=== PATIENT | female | born 1980 | race American Indian/Alaskan Native ===

== ENCOUNTER 2016-11-21 18:27 | Outpatient (CLI) | payer MEDICAID | END 2016-11-21 18:50 | disposition home or self-care (01) | LOC: TRG 18:27 → EDSTATUS 18:28 → TRG 18:32 | PROVIDERS: ATTEND Obstetrics & Gynecology | DX: O47.9 False labor, unspecified (principal); Z3A.00 Weeks of gestation of pregnancy not specified | CPT/HCPCS: 86850; 86900; 86901; 96372; J2790 ==

== ENCOUNTER 2016-11-26 15:42 | Outpatient (CLI) | payer MEDICAID ==
[2016-11-26 16:03] VITALS: BP 103/54
== END 2016-11-26 16:45 | disposition home or self-care (01) ==
LOC: TRG 15:42
PROVIDERS: ATTEND Obstetrics & Gynecology
DX: O77.9 Labor and delivery complicated by fetal stress, unspecified (principal); O47.9 False labor, unspecified; Z3A.00 Weeks of gestation of pregnancy not specified
CPT/HCPCS: 59025

== ENCOUNTER 2017-08-21 21:02 | Emergency (ER) | payer MEDICAID ==
[2017-08-21 21:28] VITALS: BP 131/81
[2017-08-21 22:29] LABS: Basophils % (Auto) 0.3 % (0.0-1.8); Hematocrit 39.8 % (30.3-42.9); Hemoglobin 13.4 gm/dl (10.1-14.3); Mean Corpuscular HGB Conc 34 % (30-34); Mean Corpuscular Hemoglobin 27 pg (28-32); Mean Corpuscular Volume 81 fl (79-97); Platelet Count 283 K/mm3 (140-440); Red Blood Count 4.89 M/mm3 (3.65-5.03); Red Cell Distribution Width 15.2 % (13.2-15.2); White Blood Count 6.3 K/mm3 (4.5-11.0)
[2017-08-21 22:35] LABS: Bacteria,Urine 1+ /HPF (Negative); Bilirubin,Urine NEG (Negative); Blood,Urine NEG (Negative); Ketones,Urine NEG (Negative); Leukocyte Esterase,Urine LG (Negative); Mucus,Urine FEW /HPF; Nitrite,Urine NEG (Negative)
[2017-08-21 22:45] LABS: Alanine Aminotransferase 11 units/L (7-56); Albumin 4.4 g/dL (3.9-5); Albumin/Globulin Ratio 1.1 %; Alkaline Phosphatase 61 units/L (35-129); BUN/Creatinine Ratio 7; Blood Urea Nitrogen 5 mg/dL (7-17); Calcium 9.7 mg/dL (8.4-10.2); Carbon Dioxide 22 mmol/L (22-30); Glucose 107 mg/dL (65-100); Lipase 17 units/L (13-60); Total Protein 8.3 g/dL (6.3-8.2)
[2017-08-21 22:46] LABS: Anion Gap 21 mmol/L; Chloride 94.9 mmol/L (98-107); Potassium 3.6 mmol/L (3.6-5.0); Sodium 134 mmol/L (137-145)
== END 2017-08-21 22:07 | disposition left against medical advice (07) ==
LOC: ED 21:02
DX: R11.10 Vomiting, unspecified (principal); Z53.21 Procedure and treatment not carried out due to patient leaving prior to being seen by health care provider
CPT/HCPCS: 36415; 80048; 80053; 81001; 83690; 84702; 85025

== ENCOUNTER 2018-02-13 12:02 | Outpatient (CLI) | payer MEDICAID | END 2018-02-13 14:30 | disposition home or self-care (01) | LOC: TRG 12:02 → LAB 12:02 → TRG 14:09 | PROVIDERS: ATTEND Obstetrics & Gynecology | DX: O36.0130 Maternal care for anti-D [Rh] antibodies, third trimester, not applicable or unspecified (principal); O09.523 Supervision of elderly multigravida, third trimester; Z3A.33 33 weeks gestation of pregnancy | CPT/HCPCS: 86850; 86900; 86901; J2790; 96372 ==

== ENCOUNTER 2018-03-02 18:28 | Emergency (ER) | payer OTHER, MEDICAID ==
[2018-03-02 18:38] VITALS: BP 109/53
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
== END 2018-03-02 20:35 | disposition home or self-care (01) ==
LOC: ED 18:28
DX: O26.893 Other specified pregnancy related conditions, third trimester (principal); S39.012A Strain of muscle, fascia and tendon of lower back, initial encounter; G44.209 Tension-type headache, unspecified, not intractable; Z3A.38 38 weeks gestation of pregnancy; Z88.8 Allergy status to other drugs, medicaments and biological substances; V49.59XA Passenger injured in collision with other motor vehicles in traffic accident, initial encounter; Y93.89 Activity, other specified; Y92.89 Other specified places as the place of occurrence of the external cause; Y99.8 Other external cause status
CPT/HCPCS: 99282

== ENCOUNTER 2018-03-02 20:50 | Observation (INO) | payer OTHER, MEDICAID ==
[2018-03-02] MEDS ORDERED: LACTATED RINGERS 1,000 ML IV ONE (21:35)
[2018-03-02 22:46] LABS: Hemoglobin 8.6 gm/dl (10.1-14.3); Mean Corpuscular Volume 73 fl (79-97)
[2018-03-02 22:47] LABS: Mean Corpuscular HGB Conc 32 % (30-34); Platelet Count 286 K/mm3 (140-440); Red Cell Distribution Width 17.6 % (13.2-15.2)
[2018-03-02 22:48] LABS: Mean Corpuscular Hemoglobin 23 pg (28-32)
[2018-03-02 22:49] LABS: Bilirubin,Urine NEG (Negative); Blood,Urine NEG (Negative); Color,Urine Yellow (Yellow); Protein,Urine <15 mg/dL mg/dL (Negative); Urobilinogen,Urine < 2.0 mg/dL (<2.0)
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
[2018-03-02] MEDS: LACTATED RINGERS 1,000 ML IV SCH (23:28)
[2018-03-03] MEDS ORDERED: AMBIEN PO PRN (00:17)
[2018-03-03] MEDS: PERCOCET 5/325 PO PRN ×2 (00:30→08:47)
[2018-03-03] MEDS ORDERED: FLEXERIL PO PRN (00:44)
[2018-03-03] MEDS ORDERED: FLEXERIL PO SCH (01:00)
[2018-03-03] MEDS: LACTATED RINGERS 1,000 ML IV SCH (08:39)
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
[2018-03-03 17:00] VITALS: BP 92/56
== END 2018-03-03 17:30 | disposition home or self-care (01) ==
LOC: TRG 20:50 → LD 23:02
PROVIDERS: ADMIT Obstetrics & Gynecology; ATTEND Obstetrics & Gynecology
DX: Z34.93 Encounter for supervision of normal pregnancy, unspecified, third trimester (principal); Z04.1 Encounter for examination and observation following transport accident; Z3A.36 36 weeks gestation of pregnancy
CPT/HCPCS: 36415; 76816; 76819; 81001; 85027; 86850; 86870; 86900; 86901; 96360; 96361; G0378; J7120

== ENCOUNTER 2018-07-28 17:12 | Emergency (ER) | payer SELFPAY ==
[2018-07-28] MEDS ORDERED: MOTRIN PO ONE (18:27)
--- NOTE | 2018-07-28 19:20 | XRay Report ---
FINAL REPORT EXAM: XR HAND 3+V RT HISTORY: middle finger injury COMPARISON: None available. FINDINGS: Three views the right hand obtained. There is an oblique nondisplaced fracture at the volar base of the 3rd middle phalanx. Remaining bony structures are intact. Joint spaces are preserved.. IMPRESSION: Oblique nondisplaced fracture through the volar base of the 3rd middle phalanx.
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
[2018-07-28 20:13] VITALS: BP 132/88
== END 2018-07-28 20:16 | disposition home or self-care (01) ==
LOC: ED 17:12
DX: S62.652A Nondisplaced fracture of middle phalanx of right middle finger, initial encounter for closed fracture (principal); D57.3 Sickle-cell trait; Z88.1 Allergy status to other antibiotic agents; W22.01XA Walked into wall, initial encounter; Y93.89 Activity, other specified; Y99.8 Other external cause status; Y92.018 Other place in single-family (private) house as the place of occurrence of the external cause

== ENCOUNTER 2019-02-28 02:53 | Emergency (ER) | payer OTHER ==
[2019-02-28 06:38] VITALS: BP 98/64
[2019-02-28] MEDS ORDERED: TORADOL IM ONE (06:49)
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
== END 2019-02-28 07:30 | disposition home or self-care (01) ==
LOC: ED 02:53
DX: S39.012A Strain of muscle, fascia and tendon of lower back, initial encounter (principal); D57.3 Sickle-cell trait; Z87.891 Personal history of nicotine dependence; Z88.1 Allergy status to other antibiotic agents; Y04.0XXA Assault by unarmed brawl or fight, initial encounter; Y93.89 Activity, other specified; Y92.89 Other specified places as the place of occurrence of the external cause; Y99.8 Other external cause status
CPT/HCPCS: 96372; 99282; J1885

== ENCOUNTER 2019-03-06 04:13 | Emergency (ER) | payer OTHER ==
[2019-03-06 06:20] VITALS: BP 117/78
[2019-03-06] MEDS ORDERED: TORADOL IM ONE (07:01)
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
== END 2019-03-06 08:31 | disposition home or self-care (01) ==
LOC: ED 04:13
DX: S16.1XXA Strain of muscle, fascia and tendon at neck level, initial encounter (principal); S60.222A Contusion of left hand, initial encounter; S60.221A Contusion of right hand, initial encounter; Y04.8XXA Assault by other bodily force, initial encounter; Y93.89 Activity, other specified; Y92.89 Other specified places as the place of occurrence of the external cause; Y99.8 Other external cause status; Z87.891 Personal history of nicotine dependence; Z88.1 Allergy status to other antibiotic agents
CPT/HCPCS: 72040; 73060; 96372; 99283; J1885

== ENCOUNTER 2020-02-11 10:10 | Emergency (ER) | payer SELFPAY ==
[2020-02-11 10:22] VITALS: BP 131/89
[2020-02-11 10:55] LABS: Bilirubin,Urine NEG (Negative); Blood,Urine LG (Negative); Color,Urine Red (Yellow); Urobilinogen,Urine < 2.0 mg/dL (<2.0)
[2020-02-11 10:57] LABS: RBC,Urine > 182.0 /HPF (0.0-6.0); WBC,Urine < 1.0 /HPF (0.0-6.0)
[2020-02-11 10:59] LABS: HCG Qualitative,Urine Negative (Negative)
--- NOTE | 2020-02-11 11:38 | Emergency Department Report ---
ED Dysuria HPI - HPI Chief Complaint: Urogenital-Female Stated Complaint: BLOOD IN URINE Time Seen by Provider: 02/11/20 11:00 Severity: Mild (1 week) Symptoms: Dysuria: No (Patient states she had dysuria about 2 to 3 weeks ago but now resolved), Frequency: Yes, Suprapubic Pain: No, Flank Pain: No, Fever: No, Hematuria: Yes, Abdominal Pain: No, Previous UTI's: No Other History: This is a 39-year-old female presents the ED complaining of blood in the urine for the past week. Patient states about a month ago she started experiencing some pain with urination. Patient states she thought it was a UTI so she let it resolved. Patient states the pain went away but the past week she started noticing from some frequency and noticing blood in her urine. Patient denies abdominal pain, pelvic pain, nausea vomiting or diarrhea ED Review of Systems ROS: Stated complaint: BLOOD IN URINE Other details as noted in HPI Comment: All other systems reviewed and negative ED Past Medical Hx - Past Medical History Previous Medical History?: Yes Hx Hypertension: No Hx Congestive Heart Failure: No Hx Diabetes: No Hx Deep Vein Thrombosis: No Hx Renal Disease: No Hx Sickle Cell Disease: No Hx Seizures: No Hx Asthma: No Hx COPD: No Hx HIV: No Additional medical history: sickle cell trait - Surgical History Past Surgical History?: No Additional Surgical History: galgion cyst hand and breast - Social History Smoking Status: Current Every Day Smoker Substance Use Type: Alcohol, Marijuana - Medications Home Medications: Home Medications Medication Instructions Recorded Confirmed Last Taken Type Cyclobenzaprine HCl [Flexeril 5 MG 5 mg PO TID PRN #15 tab 03/02/18 03/02/18 Unknown Rx TAB] oxyCODONE /ACETAMINOPHEN [Percocet 1 tab PO Q6HR PRN #30 tablet 03/03/18 Unknown Rx 5/325] Acetaminophen/Codeine [Tylenol 1 tab PO Q6H PRN #12 tab 07/28/18 Unknown Rx /Codeine # 3 tab] Ibuprofen [Motrin] 600 mg PO Q8H PRN #30 tablet 07/28/18 Unknown Rx Cyclobenzaprine [Flexeril] 10 mg PO TID PRN #30 tablet 02/28/19 Unknown Rx Menthol/Camphor [[place] 1 applicatio TP QID PRN #1 tube 02/28/19 Unknown Rx Ointment] Naproxen 500 mg PO BID PRN #30 tablet 02/28/19 Unknown Rx Naproxen [Naprosyn] 500 mg PO BID #10 tablet 03/06/19 Unknown Rx traMADoL [Ultram] 50 mg PO Q6HR PRN #7 tablet 03/06/19 Unknown Rx Ciprofloxacin HCl [Ciprofloxacin 500 mg PO Q12HR #14 tab 02/11/20 Unknown Rx TAB] Dysuria Exam - Exam General: Vital signs noted. No distress. Alert and acting appropriately. Exam: Yes Moist Mucous Membranes, No CVA Tenderness, No Abdominal Tenderness, No Rigidity or Guarding Labs: Lab Results 02/11/20 Range/Units Unknown Urine Color Red (Yellow) Urine Turbidity Slightly-cloudy (Clear) Urine pH 6.0 (5.0-7.0) Ur Specific [place] 1.009 (1.003-1.030) Urine Protein 100 mg/dl (Negative) mg/dL Urine Glucose (UA) Neg (Negative) mg/dL Urine Ketones Neg (Negative) mg/dL Urine Blood Lg (Negative) Urine Nitrite Neg (Negative) Urine Bilirubin Neg (Negative) Urine Urobilinogen < 2.0 (<2.0) mg/dL Ur Leukocyte Esterase Neg (Negative) Urine WBC (Auto) < 1.0 (0.0-6.0) /HPF Urine RBC (Auto) > 182.0 (0.0-6.0) /HPF Urine HCG, Qual Negative (Negative) ED Course Vital Signs 02/11/20 10:21 Temperature 98.1 F Pulse Rate 63 Respiratory 18 Rate Blood Pressure 131/89 O2 Sat by Pulse 100 Oximetry ED Medical Decision Making - Lab Data Laboratory Last Values Urine Color Red (Yellow) 02/11/20 Unknown Urine Turbidity Slightly-cloudy (Clear) 02/11/20 Unknown Urine pH 6.0 (5.0-7.0) 02/11/20 Unknown Ur Specific [place] 1.009 (1.003-1.030) 02/11/20 Unknown Urine Protein 100 mg/dl mg/dL (Negative) 02/11/20 Unknown Urine Glucose (UA) Neg mg/dL (Negative) 02/11/20 Unknown Urine Ketones Neg mg/dL (Negative) 02/11/20 Unknown Urine Blood Lg (Negative) 02/11/20 Unknown Urine Nitrite Neg (Negative) 02/11/20 Unknown Urine Bilirubin Neg (Negative) 02/11/20 Unknown Urine Urobilinogen < 2.0 mg/dL (<2.0) 02/11/20 Unknown Ur Leukocyte Esterase Neg (Negative) 02/11/20 Unknown Urine WBC (Auto) < 1.0 /HPF (0.0-6.0) 02/11/20 Unknown Urine RBC (Auto) > 182.0 /HPF (0.0-6.0) 02/11/20 Unknown Urine HCG, Qual Negative (Negative) 02/11/20 Unknown - Medical Decision Making 39-year-old female presents with hematuria This is most likely secondary to a UTI. Discussed with patient we will treat with antibiotics and if symptoms do not resolve patient is to follow-up with a urologist/cone runner for further work- up. Vital signs are normal patient understands instructions she is in no acute dis tress. Critical care attestation.: If time is entered above; I have spent that time in minutes in the direct care of this critically ill patient, excluding procedure time. ED Disposition Clinical Impression: Hematuria Disposition: - TO HOME OR SELFCARE Is pt being admited?: No Does the pt Need Aspirin: No Condition: Stable Instructions: Urinary Tract Infection in Women (ED), Acute Hematuria (ED) Additional Instructions: Make sure to follow up with the primary care physician as discussed. Take all your medications as you've been prescribed. If you have any worsening symptoms or develop new symptoms please return to ED immediately. Prescriptions: Ciprofloxacin HCl [Ciprofloxacin TAB] 500 mg PO Q12HR #14 tab Referrals: SANIYA ANAYA MD [Primary Care Provider] - 3-5 Days [facility] [Provider Group] - 3-5 Days [facility] [Provider Group] - 3-5 Days JANE LEAHY MD [Staff Physician] - 3-5 Days Forms: Accompanied Note, Work/School Release Form(ED) Time of Disposition: 11:40
== END 2020-02-11 12:00 | disposition home or self-care (01) ==
LOC: ED 10:10
DX: R31.9 Hematuria, unspecified (principal); F17.200 Nicotine dependence, unspecified, uncomplicated; F12.90 Cannabis use, unspecified, uncomplicated; Z98.890 Other specified postprocedural states; Z79.899 Other long term (current) drug therapy; Z88.8 Allergy status to other drugs, medicaments and biological substances
CPT/HCPCS: 81001; 81025; 99283

== ENCOUNTER 2022-06-27 10:37 | Emergency (ER) | payer SELFPAY ==
[2022-06-27 11:30] VITALS: BP 132/70
--- NOTE | 2022-06-27 14:44 | Emergency Department Report ---
ED Female HPI - General Chief complaint: Abdominal Pain Stated complaint: 2 MONTH PREG/STOMACH PAIN/VOMITTING Source: patient Mode of arrival: Ambulatory Limitations: No Limitations - History of Present Illness Initial comments: 41 YO COMES TO ER WITH ABD PAIN. STATES SHE IS PREG AND HAVING BLEEDING. SHE THINKS THIS IS THE 7TH BECAUSE SHE HAS SIX KIDS HAS NOT SEEN HER OBGYN SHE WILL NOT GET OFF THE PHONE FOR HPI; VERY RUDE AND HOSTILE DURING INTERVIEW WHEN TOLD WE WOULD NEED BLOOD AND URINE SHE ASKED WHY WE WOULD NEED THAT IF SHE IS . I EXPLAINED. SHE CAN NOT TELL ME THE DATE OF HER LMP Worsens with: none Are you Now?: Yes Associated Symptoms: denies other symptoms, vaginal discharge, vaginal bleeding, abdominal pain, nausea/vomiting, dysuria. denies: fever/chills, headaches, loss of appetite, hematuria, rash, seizure, shortness of breath, syncope, weakness - Related Data Sexually active: Yes Previous Rx's Medication Instructions Recorded Last Taken Type Cyclobenzaprine HCl [Flexeril 5 MG 5 mg PO TID PRN #15 tab 03/02/18 Unknown Rx TAB] oxyCODONE /ACETAMINOPHEN [Percocet 1 tab PO Q6HR PRN #30 tablet 03/03/18 Unknown Rx 5/325] Acetaminophen/Codeine [Tylenol 1 tab PO Q6H PRN #12 tab 07/28/18 Unknown Rx /Codeine # 3 tab] Ibuprofen [Motrin] 600 mg PO Q8H PRN #30 tablet 07/28/18 Unknown Rx Cyclobenzaprine [Flexeril] 10 mg PO TID PRN #30 tablet 02/28/19 Unknown Rx Menthol/Camphor [[place] 1 applicatio TP QID PRN #1 tube 02/28/19 Unknown Rx Ointment] Naproxen 500 mg PO BID PRN #30 tablet 02/28/19 Unknown Rx Naproxen [Naprosyn] 500 mg PO BID #10 tablet 03/06/19 Unknown Rx traMADoL [Ultram] 50 mg PO Q6HR PRN #7 tablet 03/06/19 Unknown Rx Ciprofloxacin HCl [Ciprofloxacin 500 mg PO Q12HR #14 tab 02/11/20 Unknown Rx TAB] Allergies Allergy/AdvReac Type Severity Reaction Status Date / Time vancomycin Allergy Itching Verified 12/03/16 20:42 ED Review of Systems ROS: Stated complaint: 2 MONTH PREG/STOMACH PAIN/VOMITTING Other details as noted in HPI Comment: All other systems reviewed and negative ED Past Medical Hx - Past Medical History Previous Medical History?: Yes Hx Hypertension: No Hx Congestive Heart Failure: No Hx Diabetes: No Hx Deep Vein Thrombosis: No Hx Renal Disease: No Hx Sickle Cell Disease: No Hx Seizures: No Hx Asthma: No Hx COPD: No Hx HIV: No Additional medical history: sickle cell trait - Surgical History Past Surgical History?: Yes Additional Surgical History: galgion cyst hand and breast - Family History Family history: no significant - Social History Smoking Status: Never Smoker Substance Use Type: None - Medications Home Medications: Home Medications Medication Instructions Recorded Confirmed Last Taken Type Cyclobenzaprine HCl [Flexeril 5 MG 5 mg PO TID PRN #15 tab 03/02/18 03/02/18 Unknown Rx TAB] oxyCODONE /ACETAMINOPHEN [Percocet 1 tab PO Q6HR PRN #30 tablet 03/03/18 Unknown Rx 5/325] Acetaminophen/Codeine [Tylenol 1 tab PO Q6H PRN #12 tab 07/28/18 Unknown Rx /Codeine # 3 tab] Ibuprofen [Motrin] 600 mg PO Q8H PRN #30 tablet 07/28/18 Unknown Rx Cyclobenzaprine [Flexeril] 10 mg PO TID PRN #30 tablet 02/28/19 Unknown Rx Menthol/Camphor [[place] 1 applicatio TP QID PRN #1 tube 02/28/19 Unknown Rx Ointment] Naproxen 500 mg PO BID PRN #30 tablet 02/28/19 Unknown Rx Naproxen [Naprosyn] 500 mg PO BID #10 tablet 03/06/19 Unknown Rx traMADoL [Ultram] 50 mg PO Q6HR PRN #7 tablet 03/06/19 Unknown Rx Ciprofloxacin HCl [Ciprofloxacin 500 mg PO Q12HR #14 tab 02/11/20 Unknown Rx TAB] ED Physical Exam - General Limitations: No Limitations General appearance: alert, in no apparent distress - Head Head exam: Present: atraumatic, normocephalic - Eye Eye exam: Present: normal appearance - ENT ENT exam: Present: mucous membranes moist - Neck Neck exam: Present: normal inspection - Respiratory Respiratory exam: Present: normal lung sounds bilaterally. Absent: respiratory distress - Cardiovascular Cardiovascular Exam: Present: regular rate, normal rhythm. Absent: systolic murmur, diastolic murmur, rubs, gallop - GI/Abdominal GI/Abdominal exam: Present: soft, normal bowel sounds - Extremities Exam Extremities exam: Present: normal inspection - Back Exam Back exam: Present: normal inspection - Neurological Exam Neurological exam: Present: alert, oriented X3 - Psychiatric Psychiatric exam: Present: normal affect, normal mood - Skin Skin exam: Present: warm, dry, intact, normal color. Absent: rash ED Course Vital Signs 06/27/22 11:26 Temperature 98.9 F Pulse Rate 60 Respiratory 14 Rate Blood Pressure 132/70 O2 Sat by Pulse 99 Oximetry ED Medical Decision Making - Lab Data Result diagrams: 06/27/22 14:48 - Medical Decision Making Lab Results 06/27/22 06/27/22 06/27/22 Range/Units 14:48 14:48 14:48 Sodium 136 L (137-145) mmol/L Potassium 3.3 L (3.6-5.0) mmol/L Chloride 101.4 (98-107) mmol/L Carbon Dioxide 21 L (22-30) mmol/L Anion Gap 17 mmol/L BUN 4 L (7-17) mg/dL Creatinine 0.5 L (0.6-1.2) mg/dL Estimated GFR > 60 ml/min BUN/Creatinine Ratio 8 % Glucose 98 (65-100) mg/dL Calcium 10.1 (8.4-10.2) mg/dL HCG, Quant 413037 H (0-4) mIU/mL Blood Type B NEGATIVE Antibody Screen Negative Ord Rhogam Gestat Weeks <11 WEEKS Vital Signs 06/27/22 11:26 Temperature 98.9 F Pulse Rate 60 Respiratory 14 Rate Blood Pressure 132/70 O2 Sat by Pulse 99 Oximetry RH NEGATIVE - Differential Diagnosis RO AB/UTI Critical care attestation.: If time is entered above; I have spent that time in minutes in the direct care of this critically ill patient, excluding procedure time. ED Disposition Clinical Impression: Disposition: 07 LEFT AWOL/ELOPED Is pt being admited?: No Does the pt Need Aspirin: No Condition: Stable Instructions: Abdominal Pain (ED) Time of Disposition: 16:57
[2022-06-27 15:24] LABS: Blood Urea Nitrogen 4 mg/dL (7-17); Calcium 10.1 mg/dL (8.4-10.2); Hemolysis Index 11
[2022-06-27 15:30] LABS: BUN/Creatinine Ratio 8
--- NOTE | 2022-06-27 18:17 | Ultrasound Report ---
ULTRASOUND OBSTETRIC Indication: PAIN W PREG Findings: There is a single, living intrauterine . [place]-rump length = 0.7 cm = 6 weeks, 4 day(s). heart rate is 110 beats per minute. The ovaries are unremarkable with prominent corpus luteal cyst identified on the right.. There is no free fluid. Impression: Single, living intrauterine with estimated sonographic age of 6 weeks, 4 day(s). Signer Name: Leonardo Kinsey MD Signed: 06/27/2022 6:13 PM Workstation Name: [email or web address]
--- NOTE | 2022-06-27 18:17 | Ultrasound Report ---
ULTRASOUND OBSTETRIC Indication: PAIN W PREG Findings: There is a single, living intrauterine . [place]-rump length = 0.7 cm = 6 weeks, 4 day(s). heart rate is 110 beats per minute. The ovaries are unremarkable with prominent corpus luteal cyst identified on the right.. There is no free fluid. Impression: Single, living intrauterine with estimated sonographic age of 6 weeks, 4 day(s). Signer Name: Leonardo Kinsey MD Signed: 06/27/2022 6:13 PM Workstation Name: [email or web address]
[2022-06-28 00:03] LABS: Basophils % (Auto) 0.5 % (0.0-1.8); Eosinophils # (Auto) 0.2 K/mm3 (0.0-0.4); Eosinophils % (Auto) 2.2 % (0.0-4.3); Hematocrit 40.5 % (30.3-42.9); Hemoglobin 13.6 gm/dl (10.1-14.3); Lymphocytes # (Auto) 2.4 K/mm3 (1.2-5.4); Lymphocytes % (Auto) 35.5 % (13.4-35.0); Mean Corpuscular HGB Conc 34 % (30-34); Mean Corpuscular Volume 93 fl (79-97); Monocytes # (Auto) 0.7 K/mm3 (0.0-0.8); Monocytes % (Auto) 10.1 % (0.0-7.3); Platelet Count 209 K/mm3 (140-440); Red Blood Count 4.38 M/mm3 (3.65-5.03); Red Cell Distribution Width 13.1 % (13.2-15.2)
== END 2022-06-27 18:00 | disposition home or self-care (01) ==
LOC: ED 10:37
DX: O26.891 Other specified pregnancy related conditions, first trimester (principal); R10.9 Unspecified abdominal pain; Z3A.01 Less than 8 weeks gestation of pregnancy; Z88.1 Allergy status to other antibiotic agents; Z79.899 Other long term (current) drug therapy
CPT/HCPCS: 36415; 76801; 76817; 80048; 84702; 85025; 86850; 86900; 86901; 99284